=== PATIENT | female | born 1985 | race Caucasian/White ===

== ENCOUNTER 2016-08-22 09:26 | Outpatient (CLI) | payer OTHER ==
[~2016-08-22] VITALS: Ht 170.2 cm; Wt 79.5 kg
[~2016-08-22 09:26] MED LIST: MOTRIN 600600 MG/TAB PO; PERCOCET 325 MG1 TA2 PO; PRENATAL1 TA1; STOOL SOFTENER100 M2 PO
[2016-08-22 09:55] VITALS: BP 116/72; PULSE 107; TEMP 99.4
[2016-08-22] MEDS ORDERED: ZANTAC 7575 MG PO (09:59)
[2016-08-22 10:15] VITALS: BP 116/72; PULSE 107
[2016-08-22 11:00] VITALS: BP 134/78; PULSE 122
[2016-08-22 12:00] VITALS: BP 112/68; PULSE 105
== END 2016-08-22 12:45 | disposition home or self-care (01) ==
LOC: LDRO 09:26
DX: O32.1XX0 Maternal care for breech presentation, not applicable or unspecified (principal); Z3A.36 36 weeks gestation of pregnancy
CPT/HCPCS: J3105

== ENCOUNTER 2016-09-07 07:00 | Inpatient (IN) | payer OTHER ==
[2016-09-07] VITALS (17 sets, daily range): BP systolic 99–133; BP diastolic 55–87; PULSE 66–92; TEMP 97.8–98.4
[~2016-09-07] VITALS: Ht 170.2 cm; Wt 80.9 kg
[~2016-09-07 07:00] MED LIST changes: +ZANTAC 7575 MG PO
[2016-09-07 08:09] LABS: BASO % 0.4 % (0.0-2.0); EOS # 0.1 (0.0-0.7); EOS % 0.7 % (0-4.0); GRAN # 4.3 (1.4-6.5); HEMOGLOBIN 12.3 g/dl (12.5-16.0); LYMPH # 1.9 (1.2-3.4); LYMPH % 27.6 % (20.0-51.0); MEAN CELL VOLUME 91 fl (80.0-100.0); MEAN CORPUSCULAR HEMOGLOBIN 31 pg (27.0-31.0); MEAN CORPUSCULAR HGB CONC 34 g/dl (33.0-37.0); MEAN PLATELET VOLUME 10.7 fl (7.4-10.4); MONO # 0.4 (0.1-0.6); MONO % 6.4 % (1.7-9.3); PLATELET COUNT 167 K/mm3 (130-400); RED BLOOD COUNT 3.98 M/mm3 (4.10-5.30); REDCELL DISTRIBUTION WIDTH-CV 13.4 % (11.5-14.5); WHITE BLOOD COUNT 6.8 K/mm3 (4.8-10.8)
[2016-09-07 08:14] LABS: HEMATOCRIT 36.1 % (37.0-47.0)
[2016-09-08 04:00] VITALS: BP 111/56; PULSE 76; TEMP 98
[2016-09-08 07:40] VITALS: BP 107/64; PULSE 71; TEMP 98.7
[2016-09-08 08:42] LABS: HEMATOCRIT 34.7 % (37.0-47.0); HEMOGLOBIN 11.8 g/dl (12.5-16.0)
[2016-09-08 16:02] VITALS: BP 107/65; PULSE 75; TEMP 98.4
[2016-09-08 19:20] VITALS: BP 120/75; PULSE 79; TEMP 98.1
[2016-09-09 06:50] VITALS: BP 132/65; PULSE 98; TEMP 98.6
[2016-09-09] MEDS ORDERED: NORCO 325 MG-51 TAB PO (08:49)
[2016-09-09] MEDS ORDERED: IBU600 MG PO (08:49)
== END 2016-09-09 09:45 | disposition home or self-care (01) | DRG 766 ==
LOC: OB 07:00
PROVIDERS: Obstetrics & Gynecology
PROC: 10D00Z1 Extraction of Products of Conception, Low, Open Approach (ICD-10-PCS; principal; 2016-09-07)
DX: O32.1XX0 Maternal care for breech presentation, not applicable or unspecified (principal); Z3A.39 39 weeks gestation of pregnancy; Z37.0 Single live birth
CPT/HCPCS: J0690; J1885; J2270; J2370; J2405; J2590; J7120

== ENCOUNTER → 2018-08-26 | Outpatient (CLI) | payer BC ==
[~2018-08-26] MED LIST changes: +IBU600 MG PO; +NORCO 325 MG-51 TAB PO
== END ==
LOC: COL.RAD 14:10
DX: R53.83 Other fatigue (principal); R10.32 Left lower quadrant pain

== ENCOUNTER → 2023-05-07 | Outpatient (CLI) | payer BC | LOC: COL.RAD 08:41 | DX: R13.10 Dysphagia, unspecified (principal) ==